=== PATIENT | female | born 1970 | race Caucasian/White ===

== ENCOUNTER 2023-12-01 09:59 | Emergency (ER) | payer OTHER, SELFPAY ==
--- NOTE | ~2023-12-01 | XR_ITS ---
EXAMINATION: XR chest 2V DATE: 12/01/2023 10:45 INDICATION: Shortness of breath TECHNIQUE: PA and lateral views of the chest were obtained. COMPARISON: None FINDINGS: The lungs are clear with no focal airspace opacities, pulmonary edema, pleural effusion or pneumothor ax. The cardiomediastinal silhouette is normal. Cholecystectomy clips in right upper quadrant. Minima l thoracic dextrocurvature with mild spondylosis and mild anterior wedging of a midthoracic vertebral body. IMPRESSION: 1. No acute cardiopulmonary disease. Reviewed, dictated and finalized at location A.
--- NOTE | ~2023-12-01 | XR_ITS ---
EXAMINATION: XR foot LT min 3V DATE: 12/01/2023 10:45 INDICATION: Left foot pain after stepping on a rock TECHNIQUE: Dorsoplantar, oblique and lateral views of the left foot were obtained. COMPARISON: None. FINDINGS: Alignment is normal. No fracture. Mild osteoarthritis at the first metatarsophalangeal and a few tars ometatarsal and interphalangeal joints. Soft tissues are unremarkable. IMPRESSION: 1. 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 No acute osseous abnormality. Reviewed, dictated and finalized at location A. IMPRESSION: 1. 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 No acute oss eous abnormality.
[2023-12-01 10:07] VITALS: RESP 20; O2SAT 100
[2023-12-01 10:08] VITALS: BP 152/110; PULSE 99; RESP 19; TEMP 36.5; O2SAT 97
--- NOTE | 2023-12-01 10:20 | ECG_ITS ---
Test Date: 2023-12-01 10:31:19 Measurements Intervals [place] Rate: 81 P: 28 LA: 150 QRS: 30 QRSD: 88 T: 48 QT: 353 QTc: 411 Interpretive Statements SINUS RHYTHM WITH SINUS ARRHYTHMIA NONSPECIFIC T-WAVE ABNORMALITY ABNORMAL ECG Electronically Signed On 12-02-2023 10:48:12 CDT by Alonso Jeffers M.D.
--- NOTE | 2023-12-01 10:23 | ED.GENADULT ---
HPI - General Adult General Chief complaint: Extremity Injury, Lower Stated complaint: feet issues , new diabetic Time Seen by Provider: 12/01/23 10:11 History of Present Illness HPI narrative: Patient is a 53-year-old female who presents emergency department with chief complaint of peripheral neuropathy patient reports she was recently diagnosed with diabetes and was started on a diabetes medication the patient reports that she is not checking her blood sugars at home reports that she was told by her doctor that she needs to see an eye doctor in needs to see a foot doctor patient states that she is unable to see them until sometime in December and she noticed that her feet were getting tingly and also has had some episodes where she feels short of breath patient denies episodes of chest pain states she is thirsty all the time states she is urinating all the time the patient is unsure what her blood sugars are currently Related Data Allergies Allergy/AdvReac Type Severity Reaction Status Date / Time Sulfa (Sulfonamide Allergy Hives Verified 12/01/23 10:10 Antibiotics) sulfamethoxazole Allergy Hives Verified 12/01/23 10:10 [From Bactrim] trimethoprim [From Bactrim] Allergy Hives Verified 12/01/23 10:10 Review of Systems Review of Systems: A 10 system review of systems was completed on the patient and is negative except for what is stated in the HPI. Nursing and ancillary documentation was reviewed. Exam Narrative: GENERAL: Well-appearing, well-nourished, and in no acute distress. HEAD: Normocephalic, atraumatic. EYES: PERRLA and EOMI. ENT: Nares clear, no rhinorrhea or epistaxis. Mucous membranes moist. NECK: Supple. CHEST: Clear to auscultation. No respiratory distress. HEART: Regular rate and rhythm. No murmur heard. Normal peripheral pulses. ABDOMEN: Soft, nontender, nondistended, normal active bowel sounds. EXTREMITIES: Normal range of motion. No edema. SKIN: Warm, dry, no rash. Pain exam and no wounds present there is tenderness to palpation in the plantar area of the left foot NEURO: No focal deficits. Alert and oriented x3. PSYCH: Normal mood and affect. Course Vital Signs Vital signs: Vital Signs Respiratory Rate 20 12/01/23 10:07 Pulse Oximetry 100 12/01/23 10:07 Temperature 36.5 C 12/01/23 10:08 Pulse Rate 76 12/01/23 11:45 Respiratory Rate 20 12/01/23 11:45 Blood Pressure 144/100 H 12/01/23 11:45 Pulse Oximetry 97 12/01/23 11:45 Oxygen Delivery Room Air 12/01/23 10:08 Medical Decision Making Vital Signs Vital Signs: Vital Signs Respiratory Rate 20 12/01/23 10:07 Pulse Oximetry 100 12/01/23 10:07 Temperature 36.5 C 12/01/23 10:08 Pulse Rate 76 12/01/23 11:45 Respiratory Rate 20 12/01/23 11:45 Blood Pressure 144/100 H 12/01/23 11:45 Pulse Oximetry 97 12/01/23 11:45 Oxygen Delivery Room Air 12/01/23 10:08 Lab Data 12/01/23 10:35 12/01/23 10:35 Labs: Lab Results 12/01/23 12/01/23 Range/Units 10:35 11:46 WBC 8.8 (4.5-10.0) K/mm3 RBC 4.90 (4.2-5.4) M/mm3 Hgb 11.8 L (12.0-15.0) g/dL Hct 37.7 (37.0-47.0) % MCV 76.9 L (80-100) fl MCH 24.1 L (26-34) pg MCHC 31.3 L (32-36) g/dl RDW 16.1 H (11.5-14.5) % Plt Count 385 H (150-375) k/mm3 MPV 9.7 (7.4-10.4) fl Immature Gran % (Auto) 0.3 (0-0.5) % Neut % (Auto) 67.9 (45.5-73.1) % Lymph % (Auto) 20.0 (18.3-44.2) % [place] % (Auto) 6.7 (2.6-8.5) % Eos % (Auto) 4.2 (0-4.4) % Baso % (Auto) 0.9 (0.2-1.2) % Lymph # (Auto) 1.76 (0.9-3.2) K/mm3 [place] # (Auto) 0.6 (0.1-0.6) K/mm3 Eos # (Auto) 0.4 H (0-0.3) K/mm3 Baso # (Auto) 0.1 (0.0-0.1) K/mm3 Abs Immat Gran (auto) 0.03 (0.00-0.031) K/mm3 Absolute Neuts (auto) 6.0 (1.3-6.7) K/mm3 Absolute Nucleated RBC 0.000 (0.0-0.012) K/mm3 Nucleated RBC % 0.0 (0.0-0.2) % Sodium 136 L (137-145) mmol/L
[2023-12-01 10:43] LABS: Basophils Absolute Auto 0.1 K/mm3 (0.0-0.1); Basophils Percent Auto 0.9 % (0.2-1.2); Eosinophils Absolute Auto 0.4 K/mm3 (0-0.3); Eosinophils Percent Auto 4.2 % (0-4.4); Hematocrit 37.7 % (37.0-47.0); Hemoglobin 11.8 g/dL (12.0-15.0); Immature Granulocyte Absolute 0.03 K/mm3 (0.00-0.031); Immature Granulocyte Percent A 0.3 % (0-0.5); Lymphocytes Absolute Auto 1.76 K/mm3 (0.9-3.2); Mean Corpuscular HGB Conc 31.3 g/dl (32-36); Mean Corpuscular Hemoglobin 24.1 pg (26-34); Mean Corpuscular Volume 76.9 fl (80-100); Mean Platelet Volume 9.7 fl (7.4-10.4); Monocytes Absolute Auto 0.6 K/mm3 (0.1-0.6); Monocytes Percent Auto 6.7 % (2.6-8.5); Neutrophils Percent Auto 67.9 % (45.5-73.1); Platelet Count Result 385 k/mm3 (150-375); Red Cell Distribution Width 16.1 % (11.5-14.5); White Blood Count 8.8 K/mm3 (4.5-10.0)
[2023-12-01 10:53] LABS: Alanine Aminotransferase 35 U/L (6-35); Alkaline Phosphatase 116 U/L (38-126); Anion Gap 9 mmol/L (4-12); Aspartate Amino Transferase 34 U/L (14-36); Bilirubin,Total 0.4 mg/dL (0.2-1.3); Blood Urea Nitrogen 16 mg/dL (7-17); Calcium 9.1 mg/dL (8.4-10.2); Carbon Dioxide 26 mmol/L (22-30); Chloride 101 mmol/L (98-107); Estimated Glomerular Filt Rate 58; Glucose 112 mg/dL (65-110); Magnesium 2.2 mg/dL (1.6-2.3); Sodium 136 mmol/L (137-145)
[2023-12-01 11:05] LABS: NT Pro B Type Natriuretic Pept 48 pg/mL (19.9-100); Troponin I < 0.012 ng/mL (0.000-0.034)
[2023-12-01 11:45] VITALS: BP 144/100; PULSE 76; RESP 20; O2SAT 97
[2023-12-01 11:53] LABS: Add Urine Microscopic? NO; Appearance Urine Clear (Clear); Bilirubin Urine Negative (Negative); Blood Urine Negative (Negative); Color Urine Yellow (Yellow); Glucose Urine UA 3+ mg/dL (Negative); Ketones Urine Trace mg/dL (Negative); Leukocyte Esterase Ur Negative LEU/UL (Negative); Nitrate Urine Negative (Negative); Protein Urine Negative (Negative); Specific Grav Ur 1.028 (1.001-1.035); pH Urine 5.5 (5.0-9.0)
== END 2023-12-01 12:53 | disposition home or self-care (01) ==
PROVIDERS: Emergency Provider Emergency Medicine
DX: E11.42 Type 2 diabetes mellitus with diabetic polyneuropathy (principal); M79.672 Pain in left foot; M19.072 Primary osteoarthritis, left ankle and foot
CPT/HCPCS: 36415; 71046; 73630; 80053; 81003; 83735; 83880; 84484; 85025; 93005; 99284

== ENCOUNTER 2024-10-14 12:27 | Emergency (ER) | payer OTHER, SELFPAY ==
[2024-10-14] VITALS (9 sets, daily range): BP systolic 150–174; BP diastolic 97–126; PULSE 92–123; RESP 10–24; TEMP 37; O2SAT 96–98
--- OUTSIDE RECORDS SUMMARY | 2024-10-14 12:29 | XMS_ITS | Patient Health Record ---
Author Organization [facility] Address [address] [place] [address] Care Team Providers Care Lockstitch Waistband Setter Name Role Phone James Quan Primary Care Provider Marjan Zabala Unavailable [phone] Yumiko Coffman Unavailable [phone] Alex Granda Unavailable Allergies Allergen (clinical drug ingredient) Drug/Non Drug Allergy documented on EMR Reaction Allergy Type Onset Date Status sulfamethoxazole / trimethoprim Bactrim Unknown Drug Allergy Active Results Component Value Reference Range Notes Vitamin B12 and Folate Reviewed date:06/17/2024 03:51:14 PM Interpretation: Performing Lab:[facility], [address] [facility], Phone - [phone], Director - PhDKandice Notes/Report: Vitamin B12 604 277-1088 pg/mL Folate (Folic Acid), Serum 11.2 >3.0 ng/mL A serum folate concentration of less than 3.1 ng/mL is considered to represent clinical deficiency. Hemoglobin A1c* Reviewed date:06/17/2024 03:51:14 PM Interpretation: Performing Lab:[facility], [address] [facility] [facility], [place], Phone - [phone], Director - PhDKandice Notes/Report: Hemoglobin A1c 6.4 4.8-5.6 % . Prediabetes: 5.7 - 6.4 Diabetes: >6.4 Glycemic control for adults with diabetes: <7.0 CBC With Differential/Platel et* Reviewed date:06/17/2024 03:51:14 PM Interpretation: Performing Lab:[facility] [place], [address] [facility], Phone - [phone], Director - [facility] Notes/Report: WBC 12.5 3.4-10.8 x10E3/uL RBC 5.59 3.77-5.28 x10E6/uL Hemoglobin 12.5 11.1-15.9 g/dL Hematocrit 41.5 34.0-46.6 % MCV 74 79-97 fL MCH 22.4 26.6-33.0 pg MCHC 30.1 31.5-35.7 g/dL RDW 16.6 11.7-15.4 % Platelets 473 150-450 x10E3/uL Neutrophils 60 Not Estab. % Lymphs 27 Not Estab. % Monocytes 6 Not Estab. % Eos 6 Not Estab. % Basos 1 Not Estab. % Neutrophils (Absolute) 7.5 1.4-7.0 x10E3/uL Lymphs (Absolute) 3.4 0.7-3.1 x10E3/uL Monocytes(Absolute) 0.7 0.1-0.9 x10E3/uL Eos (Absolute) 0.8 0.0-0.4 x10E3/uL Baso (Absolute) 0.1 0.0-0.2 x10E3/uL Immature Granulocytes 0 Not Estab. % Immature Grans (Abs) 0.0 0.0-0.1 x10E3/uL Vitamin D, 25-Hydroxy* Reviewed date:06/17/2024 03:51:14 PM Interpretation: Performing Lab:[facility] [place], [address] [facility], Phone - [phone], Director - [facility] Notes/Report: Vitamin D, 25-Hydroxy 19.5 30.0-100.0 ng/mL Vitamin D deficiency has been defined by the [place] of Medicine and an Endocrine Society practice guideline as a level of serum 25-OH vitamin D less than 20 ng/mL (1,2). The Endocrine Society went on to further define vitamin D insufficiency as a level between 21 and 29 ng/mL (2). 1. IOM ([place] of Medicine). 2010. Dietary reference intakes for calcium and D. [place]: The National Academies Press. 2. Joshua STOUT, Cr DICKENS, Surinder-Tyrel CRAWFORD, et al. Evaluation, treatment, and prevention of vitamin D deficiency: an Endocrine Society clinical practice guideline. JCEM. 2010; 967):1911-30. Lipid Panel* Reviewed date:06/17/2024 03:51:14 PM Interpretation: Performing [facility] [address] [place] [address], Phone - [phone], Director - Casi Notes/Report: Cholesterol, Total 209 100-199 mg/dL Triglycerides 266 0-149 mg/dL HDL Cholesterol 46 >39 mg/dL VLDL Cholesterol Yahir 46 5-40 mg/dL LDL Chol Calc (NIH) 117 0-99 mg/dL CMP 14 Comprehensive Metabol ic Panel* Reviewed date:06/17/2024 03:51:14 PM Interpretation: Performing Lab:[facility], [address] [place] [address], Phone - [phone], Director - [facility] Notes/Report: Glucose 79 70-99 mg/dL BUN 13 6-24 mg/dL Creatinine 0.84 0.57-1.00 mg/dL eGFR 83 >59 mL/min/1.73 BUN/Creatinine Ratio 15 9-23 Sodium 138 134-144 mmol/L Potassium 4.7 3.5-5.2 mmol/L Chloride 97 96-106 mmol/L Carbon Dioxide, Total 23 20-29 mmol/L Calcium 9.6 8.7-10.2 mg/dL Protein, Total 7.4 6.0-8.5 g/dL Albumin 4.4 3.8-4.9 g/dL Globulin, Total 3.0 1.5-4.5 g/dL Bilirubin, Total 0.3 0.0-1.2 mg/dL Alkaline Phosphatase 181 44-121 IU/L AST (SGOT) 26 0-40 IU/L ALT (SGPT) 31 0-32 IU/L TSH Rfx on Abnormal to Free T4 Reviewed date:06/17/2024 03:51:14 PM Interpretation: Performing Lab:[facility], [facility] [facility], Phone - [phone], Director - Casi Notes/Report: TSH 4.960 0.450-4.500 uIU/mL T4,Free (Direct) 1.52 0.82-1.77 ng/dL Hepatitis C Virus Antibody w /Rflx to Quantitative Real-time PCR ([id number]) Reviewed date:07/14/2024 02:49:33 PM Interpretation: Performing Lab:[address], Phone - [phone], Director - [facility] Notes/Report: HCV Ab Non Reactive Non Reactive Interpretation: Not infected with HCV unless early or acute infection is suspected (which may be delayed in an immunocompromised individual), or other evidence exists to indicate HCV infection. Hepatitis B Surface Antigen (HBsAg Screen) Reviewed date:07/14/2024 02:49:33 PM Interpretation: Performing Lab:[address], Phone - [phone], Director - [facility] Notes/Report: HBsAg Screen Negative Negative CBC With Differential/Platel et* Reviewed date:07/14/2024 02:49:33 PM Interpretation: Performing Lab:[address], Phone - [phone], Director - [facility] Notes/Report: WBC 11.6 3.4-10.8 x10E3/uL RBC 5.19 3.77-5.28 x10E6/uL Hemoglobin 11.6 11.1-15.9 g/dL Hematocrit 37.7 34.0-46.6 % MCV 73 79-97 fL MCH 22.4 26.6-33.0 pg MCHC 30.8 31.5-35.7 g/dL RDW 16.1 11.7-15.4 % Platelets 429 150-450 x10E3/uL Neutrophils 58 Not Estab. % Lymphs 28 Not Estab. % Monocytes 7 Not Estab. % Eos 6 Not Estab. % Basos 1 Not Estab. % Neutrophils (Absolute) 6.6 1.4-7.0 x10E3/uL Lymphs (Absolute) 3.3 0.7-3.1 x10E3/uL Monocytes(Absolute) 0.8 0.1-0.9 x10E3/uL Eos (Absolute) 0.7 0.0-0.4 x10E3/uL Baso (Absolute) 0.1 0.0-0.2 x10E3/uL Immature Granulocytes 0 Not Estab. % Immature Grans (Abs) 0.0 0.0-0.1 x10E3/uL Hemoglobin A1c CLIA Waived Reviewed date:08/11/2024 10:55:30 AM Interpretation: Performing Lab: Notes/Report: Hemoglobin A1c 6.3 4.0 - 6.4 % Alpha-Fetoprotein (AFP), Dane or Marker Reviewed date:07/14/2024 02:49:33 PM Interpretation: Performing Lab:[address], Phone - [phone], [facility] Notes/Report: AFP, Serum, Tumor Marker <1.8 0.0-9.2 ng/mL [employer] Electrochemiluminescence Immunoassay (ECLIA) . Values obtained with different assay methods or kits cannot be used interchangeably. Results cannot be interpreted as absolute evidence of the presence or absence of malignant disease. . This test is not interpretable in females. Ferritin, Serum* Reviewed date:07/01/2024 05:01:40 PM Interpretation: Performing Lab:[address], Phone - [phone], [facility] Notes/Report: Ferritin 8 15-150 ng/mL Iron and TIBC* Reviewed date:07/01/2024 05:01:40 PM Interpretation: Performing Lab:[address], Phone - [phone], [facility] Notes/Report: Iron Bind.Cap.(TIBC) 426 250-450 ug/dL UIBC 404 131-425 ug/dL Iron 22 27-159 ug/dL Iron Saturation 5 15-55 % C-Reactive Protein, Quant Reviewed date:07/01/2024 05:01:40 PM Interpretation: Performing Lab:[address], Phone - [phone], Director - [facility] Notes/Report: C-Reactive Protein, Quant 7 0-10 mg/L CMP 14 Comprehensive Metabol ic Panel* Reviewed date:07/01/2024 05:01:40 PM Interpretation: Performing Lab:[address], Phone - [phone], [facility] Notes/Report: Glucose 92 70-99 mg/dL BUN 11 6-24 mg/dL Creatinine 0.69 0.57-1.00 mg/dL eGFR 104 >59 mL/min/1.73 BUN/Creatinine Ratio 16 9-23 Sodium 140 134-144 mmol/L Potassium 4.4 3.5-5.2 mmol/L Chloride 102 96-106 mmol/L Carbon Dioxide, Total 24 20-29 mmol/L Calcium 9.2 8.7-10.2 mg/dL Protein, Total 7.2 6.0-8.5 g/dL Albumin 4.3 3.8-4.9 g/dL Globulin, Total 2.9 1.5-4.5 g/dL Bilirubin, Total <0.2 0.0-1.2 mg/dL Alkaline Phosphatase 171 44-121 IU/L AST (SGOT) 22 0-40 IU/L ALT (SGPT) 31 0-32 IU/L Alk Phos Isoenzyme Reviewed date:07/14/2024 02:49:33 PM Interpretation: Performing Lab:[facility] [place], [address] [facility], [place], Phone - [phone], Director - Casi Notes/Report: Alkaline Phosphatase 169 44-121 IU/L Liver Fraction: 71 18-85 % Bone Fraction: 27 14-68 % Intestinal Frac.: 2 0-18 % Reason For Referral Reason right knee and left hip pain Diagnosis 1 Left hip pain (M25.5 52) Diagnosis 2 Right knee pain (M25 .561) Referral Organization [facility] Referring Provider First Name Yumiko Referring Provider Last Name [place] [facility]erred Provider Specialty Physical The rapist General Notes Aziaz Larkin 03:01:18 PM >Client prefers [facility], Aziza Larkin 07/01/2024 03:04:21 PM >Referral faxed to [facility]., Aziza Larkin 07/02/2024 09:40:56 AM >Left a message for client that PT referral has been faxed to [facility]. Clinical Notes [facility]ter, [address] [place] [address], , Referral Priority Routine Reason NEEDS NEW HEARING AI DS Diagnosis 1 Hearing aid worn (Z9 7.4) Referral Organization [facility] Referring Provider First Name Quan Referring Provider Last Name Ramirez Referring Provider Speciality Internal M edicine Referred Provider Specialty Audiologists Referral Priority Routine Reason OFFICE APPT, NEEDS N EW EQUIPMENT Diagnosis 1 Sleep apnea in adult (G47.33) Referral Organization [facility] Referring Provider First Name Quan Referring Provider Last Name Ramirez Referring Provider Speciality Internal M edicine Referred Provider Specialty Sleep Medici ne General Notes Dragan KRAFT, Tracy Nolen 12/2024 02:58:43 PM > Referral and letter sent Clinical Notes Dr Gelacio Zamudio, [address] [facility] [address], [facility] [address], phone [phone], fax [phone] Referral Priority Routine Medications Medication SIG (Take, Route, Frequency, Duration) Notes Start Date End Date Status Levothyroxine Sodium 100 MCG 1 tablet in the morning on an empty stomach Orally Once a day; Duration: 30 days Active Famotidine 40 MG 1 tablet at bedtime Orally Once a day; Duration: 30 days Active Dulaglutide 0.75 MG/0.5ML 0.5 mL Subcuta neous weekly; Duration: 28 days 09/10/2024 Active Atorvastatin Calcium 40 MG 1 tablet Oral ly Once a day; Duration: 30 days Active Diclofenac Sodium 75 MG Oral; Duration: 30 Days Active Gabapentin 100 MG TAKE 1 CAPSULE BY [facility] THREE TIMES DAILY DIRECTED FOR NERVE PAIN Oral; Duration: 30 Days Active Farxiga 10 MG 1 tablet Orally Once a day; Duration: 30 days Active Lisinopril 10 MG 1 tablet Orally Once a day; Duration: 30 days 06/29/2024 Active buPROPion HCl ER (SR) 150 MG 1 tablet in the morning Orally Once a day; Duration: 90 days Active Citalopram Hydrobromide 10 MG 1 tablet Orally Once a day; Duration: 90 days Active traZODone HCl 50 MG 1 tablet at bedtime as needed Orally Once a day; Duration: 90 days Active Social History Tobacco Use: Social History Observation Description Date Details (start date - stop date) Never Smoker NA - NA Sex Assigned At : Social History Observation Description Sex Assigned At Female Tobacco Control (Standard) Question Answer Notes Tobacco use: Nonsmoker Problems Problem Type SNOMED Code ICD Code Onset Dates Problem Status W/U Status Risk Notes Problem Essential hypertension (02838160) Essential (primary) hypertension (I10) 06/30/19 25 Active confirmed Med Problem Hypertension (68602189) Hypertension (I10) Active confirmed Problem Hyperlipidemia (85130096) Hyperlipidemia (E78.5) Active confirmed Problem Gastroesophageal reflux disease (397571359) GERD (gastroesophageal reflux disease) (K21.9) Active confirmed Problem Depression (928442750) Depression (F32.9) Active confirmed Problem Anxiety (10404926) Anxiety (F41.9) Active confi rmed Problem Type II diabetes mellitus without complication (643231008) Diabetes (E11.9) Active confirmed Problem Hypothyroidism (57547001) Hypothyroidism (E03.9) Active confirmed Problem Elevated blood pressure (66278779) Elevated blood pressure (I10) Active confirmed Problem Iron deficiency anemia (70365337) Iron deficiency anemia (D50.9) Active confirmed Problem Overweight (195674805) Over weight (E66.3) Active confirmed Problem Obstructive sleep apnea syndrome (75425642) Sleep apnea in adult (G47.33) Active confirmed Problem Laboratory test result abnormal (306989915) Abnormal laboratory test result (R89.9) Active confirmed Problem Acid reflux (140506057) Acid reflux (K21.9) Active confirmed Problem Obesity (424477564) Obesity, unspecified classification, unspecified obesity type, unspecified whether serious comorbidity present (E66.9) Active confirmed Vital Signs Heart Rate 106 /min 09/10/2024 Temperature 98.5 degrees Fahrenheit 09/10/2024 Respiratory Rate 16 /min 09/10/2024 Blood pressure diastolic 68 mm Hg 09/10/2024 Oximetry 93 % 09/10/2024 Height 60 in 09/10/2024 Blood pressure systolic 122 mm Hg 09/10/2024 Weight 220.6 lbs 09/10/2024 BMI 43.08 kg/m2 09/10/2024 Encounters Encounter Location Date Provider Diagnosis [facility] [address] [place] [address] 06/16/2024 Yumiko Coffman Screening for deficiency anemia Z13.0 ; Diabetes E11.9 ; Screening for hyperlipidemia Z13.220 ; Screening for metabolic disorder Z13.228 and Screening for thyroid disorder Z13.29 [facility] [address] [place] [address] 07/13/2024 Yumiko Coffman Elevated alkaline phosphatase level R74.8 and Abnormal laboratory test result R89.9 [facility] [address] [place] [address] 06/15/2024 Yumiko Coffman Screening for deficiency anemia Z13.0 ; Follow-up exam Z09 ; Screening for metabolic disorder Z13.228 ; Screening for hyperlipidemia Z13.220 ; Screening for thyroid disorder Z13.29 ; Diabetes E11.9 ; Nutritional counseling Z71.3 and Elevated blood pressure I10 [facility] [address] [place] [address] 06/29/2024 Yumiko Coffman Abnormal laboratory test result R89.9 ; Essential (primary) hypertension I10 ; Depression F32.9 ; Right knee pain M25.561 ; Left hip pain M25.552 ; Diabetes E11.9 ; Acid reflux K21.9 and Nutritional counseling Z71.3 [facility] [place] [address] 06/29/2024 Alex Granda Depression F32.[address] [place] [address] 07/22/2024 Marjan Zabala Depression F32.9 ; Anxiety F41.9 and Over weight E66.[address] [place] [address] 08/11/2024 Quan Ramirez Diabetes E11.9 ; Hypothyroidism E03.9 ; Hyperlipidemia E78.5 ; Hypertension I10 and Over weight E66.[address] [place] [address] 09/10/2024 Quan Ramirez Over weight E66.3 ; Diabetes E11.9 ; Hearing aid worn Z97.4 and Sleep apnea in adult G47.[address] [place] [address] 10/14/2024 Quan Ramirez [address] [place] [address] 06/17/2024 Yumiko Coffman Abnormal laboratory test result R89.9 and Hyperlipidemia E78.5 [facility] [address] [place] [address] 07/01/2024 Yumiko Coffman [address] [place] [address] 07/01/2024 Yumiko Coffman Elevated alkaline phosphatase level R74.8 [facility] [address] [address] 07/06/2024 Yumiko Coffman [facility] [address] [place] [address] 07/13/2024 Yumiko Coffman [address] [place] [address] 07/14/2024 Yumiko Coffman Iron deficiency anemia D50.[address] [place] [address] 07/20/2024 Yumiko Coffman [address] [place] [address] 07/22/2024 Marjan Zabala [facility] [address] [place] [address] 08/06/2024 Yumiko Coffman Essential (primary) hypertension I10 [address] [place] [address] 08/13/2024 Quan Ramirez [facility] [address] [facility] [address] 10/05/2024 Quan Ramirez Hyperlipidemia E78.5 Assessments Encounter Date Diagnosis (ICD Code) Assessment Notes Treatment Notes Treatment Clinical Notes Section Notes 06/29/2024 Essential (primary) hypertension (ICD-10 - I10) 06/29/2024 Abnormal laboratory test result (ICD-10 - R89.9) 07/01/2024 Elevated alkaline phosphatase level (ICD-10 - R74.8) 07/13/2024 Elevated alkaline phosphatase level (ICD-10 - R74.8) 09/10/2024 Diabetes (ICD-10 - E11.9) 09/10/2024 Over weight (ICD-10 - E66.3) 10/05/2024 Hyperlipidemia (ICD-10 - E78.5) 08/11/2024 Diabetes (ICD-10 - E11.9) DISCUSSED AND SENT WEB MD INFO ON BODY WEIGHT EXERCISES AND THE MEDITERRANEAN DIET. 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 07/22/2024 Anxiety (ICD-10 - F41.9) Reports hx of ADD/ADHD-in attentive type; possible PTSD Client also reports possible addictive behavior to video games and her phone - continue therapy. 06/15/2024 Screening for metabolic disorder (ICD-10 - Z13.228) 08/11/2024 Hyperlipidemia (ICD-10 - E78.5) 06/16/2024 Diabetes (ICD-10 - E11.9) 06/17/2024 Hyperlipidemia (ICD-10 - E78.5) 09/10/2024 Hearing aid worn (ICD-10 - Z97.4) 07/13/2024 Abnormal laboratory test result (ICD-10 - R89.9) 06/29/2024 Depression (ICD-10 - F32.9) 06/29/2024 Right knee pain (ICD-10 - M25.561) 08/11/2024 Hypertension (ICD-10 - I10) 09/10/2024 Sleep apnea in adult (ICD-10 - G47.33) 06/16/2024 Screening for hyperlipidemia (ICD-10 - Z13.220) 06/15/2024 Screening for hyperlipidemia (ICD-10 - Z13.220) 07/22/2024 Over weight (ICD-10 - E66.3) Encouraged healthy diet and exercise Reports hx of ADD/ADHD-in attentive type; possible PTSD Client also reports possible addictive behavior to video games and her phone - continue therapy. 06/15/2024 Screening for thyroid disorder (ICD-10 - Z13.29) 06/16/2024 Screening for metabolic disorder (ICD-10 - Z13.228) 08/11/2024 Over weight (ICD-10 - E66.3) 06/29/2024 Left hip pain (ICD-10 - M25.552) 06/29/2024 Diabetes (ICD-10 - E11.9) 06/16/2024 Screening for thyroid disorder (ICD-10 - Z13.29) 06/15/2024 Diabetes (ICD-10 - E11.9) 06/15/2024 Nutritional counseling (ICD-10 - Z71.3) 06/29/2024 Acid reflux (ICD-10 - K21.9) 06/15/2024 Elevated blood pressure (ICD-10 - I10) Pt. agreeable to returning in 2 weeks for a BP check 06/29/2024 Nutritional counseling (ICD-10 - Z71.3) 06/15/2024 Other Patient may self-administer their own medications or may self-administer their own oral medications per [place] Protocol. 06/29/2024 Other Patient may self-administer their own medications or may self-administer their own oral medications per [place] Protocol. 07/22/2024 Other [place] agreement to continue current regimen. Continue therapy. Reasons, potential benefits, potential risks, interactions and side effects of all medications were discussed. The Patient/Guardian asked appropriate questions, appeared to understand the answers, and decided to accept the treatment and continue being followed. Alternatives and expected course without treatment were reviewed. The Patient/Guardian is aware of the need to contact the office or return for an earlier appointment if any problems or concerns arise. May also contact the 24-hour crisis hotline (R), refer to the closest emergency room or call 911 if new symptoms arise of existing symptoms worsen. The Patient/Guardian is aware that this would apply to symptoms like: suicidal ideation, homicidal ideation, high risk behaviors, manic symptoms, psychotic symptoms, physical symptoms, or any other symptoms that may be dangerous to self or others. Greater than 50% of time spent on coordination and counseling where psychopharmacology as well as psychotherapeutic interventions were discussed along with review of treatments in the past. Education provided concerning need for adequate hydration. Patient/Guardian verbalized understanding of education, treatment plan and follow up. This session was completed telephonically with client/parental/guar ignacia consent: Unable to determine movement status, assess appearance, affect, AIMS, or vital signs. 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 Plan Of Treatment No Information Insurance Providers Payer Name Payer Address Payer Phone Subscriber Number Group Number Insured Name Patient Relationship to Insured Coverage Start Date Coverage End Date [facility] Attn Claims Department [address] [address] [id number] Kaylynn Krause Self - patient is the insured 4 [employer] Attn Claims Department [address] [address] [id number] Kaylynn Krause Self - patient is the insured 5 [employer] Attn Claims Department [address] [address] [id number] Kaylynn Krause Self - patient is the insured 4 Medical (General) History Medical History History ICD Code Pre-Diabetes Thyroid anxiety Depression Hyperlipidemia E78.5 Depression F32.9 Anxiety F41.9 GERD (gastroesophageal reflux disease) K 21.9 Surgical History Surgery Date(Month/Year) D & C Tonsillectomy Gallbladder Hospitalization History Reason Date(Month/Year) In [place](for Mental Health)
[2024-10-14 13:07] LABS: Hematocrit 42.0 % (37.0-47.0); Hemoglobin 12.6 g/dL (12.0-15.0); Immature Granulocyte Percent A 0.3 % (0-0.5); Lymphocytes Absolute Auto 2.98 K/mm3 (0.9-3.2); Mean Corpuscular HGB Conc 30.0 g/dl (32-36); Mean Corpuscular Hemoglobin 23.6 pg (26-34); Mean Corpuscular Volume 78.7 fl (80-100); Nucleated Red Blood Cells Absolute Auto 0.000 K/mm3 (0.0-0.012); Nucleated Red Blood Cells Perc 0.0 % (0.0-0.2); Platelet Count Result 358 k/mm3 (150-375); Red Blood Count 5.34 M/mm3 (4.2-5.4); White Blood Count 9.2 K/mm3 (4.5-10.0)
[2024-10-14 13:18] LABS: Alanine Aminotransferase 36 U/L (6-35); Albumin Level 4.4 g/dL (3.5-5.1); Alkaline Phosphatase 114 U/L (38-126); Anion Gap 14 mmol/L (4-12); Aspartate Amino Transferase 34 U/L (14-36); Bilirubin,Total 0.4 mg/dL (0.2-1.3); Blood Urea Nitrogen 10 mg/dL (7-17); Calcium 9.6 mg/dL (8.4-10.2); Carbon Dioxide 24 mmol/L (22-30); Chloride 102 mmol/L (98-107); Estimated CRCL calculation 56 ml/min; Estimated Glomerular Filt Rate 54; Glucose 106 mg/dL (65-110); Magnesium 2.3 mg/dL (1.6-2.3); Potassium 3.6 mmol/L (3.4-5.0); Sodium 140 mmol/L (137-145); Total Protein 8.2 g/dL (6.3-8.2)
[2024-10-14] MEDS: LACTATED RINGERS 1,000 ML 999 ML IV CONT ×2 (13:18)
[2024-10-14] MEDS: LACTATED RINGERS 900 ML 999 ML IV CONT (13:19)
[2024-10-14 13:21] LABS: INR 1.0; Prothrombin Time 13.5 Seconds (11.1-14.7)
[2024-10-14 13:22] LABS: Partial Thromboplastin Time 26.7 Seconds (22.3-36.8)
--- OUTSIDE RECORDS SUMMARY | 2024-10-14 13:24 | XMS_ITS | Data Portability ---
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 returned to [facility] from [place] and is in need of referrals. She denies any illness or injuries. She states that she is hard of hearing and wears bilateral hearing aids. She states that she will need to have them professionally cleaned prior to starting her job with the [employer]. Cristina HowieTELMA [address], [place], [address], [place] 11/16/2023 11:59:26 12/05/2023 text/html The patient is a 53-year-old female who presents with bilateral hand numbness and tingling. This has been ongoing for at least a month states it has been persistent in nature. She describes decreased sensation and tingling in the median nerve distributions both hands left worse than right. Denies any specific trauma or injury no repetitive overuse type injury is not sure why she is having issues. She did state that she was recently diagnosed with type 2 diabetes is also having some tingling in both feet. She has been placed on metformin also has history of hypothyroidism and was given some oral anti-inflammatory medication she was taking diclofenac 50 mg t.i.d. and also ibuprofen 200 mg 3 tablets 3 times a day I have advised her she should only take 1 of the other she states she is almost out of the diclofenac. She does have night splints that she wears she actually wears the cock-up wrist braces during the day as well. The problem does not keep her awake at night but occasionally she will have to shake her hands and work them around to try to get the normal sensation back. She has some problems with aching pain as well in the thumbs emanating from the carpal tunnel region. She states that pain is about a 5 on a scale of 1-10 denies any weakness no loss of motion no effusion or swelling she comes in today for initial evaluation treatment. New past medical history sheet was reviewed and signed on the intake sheet of today's date drug allergies current medications family social history previous surgical history 10 point review of systems was reviewed and discussed in detail today with the patient. SUDEEP Topete [address], [place], [address], [place] 12/05/2023 16:16:57 12/30/2023 text/html . Patient is a 53-year-old female morbidly obese diabetic who states that she has numbness tingling of the feet. Patient states that she has recently been diagnosed for diabetes. Patient states she has difficulty walking she states that she can only walk about 20 minutes and has stopped she states she can comfortably walk 0-2 blocks. Patient states the pain is intermittent in nature she states that resting, anti-inflammatories, and ice has helped. Patient also has carpal tunnel bilaterally of her risks. Patient denies any recent injury of her feet. Bradley Vasquez DPM [address] [facility], [place], [address], [place] 12/31/2023 08:59:26 03/03/2024 text/html Kaylynn presents to day for 4 month follow up. Patient states that she seen Dr. Vasquez with podiatry and he tested her for neuropathy. Upon entering the room, pt was found to have no shoes on, stating that she does not like shoes anymore because they cause pain to her feet. She also has wrist braces on both wrist due to carpal tunnel. 11/12/2023Kaylynn presents today for 3 month follow up. Labs discussed with patient. She verbalized understanding. She states that she has been having bilateral hand pain and tingling. 07/08/2023Kaylynn presents today to establish care as a new patient. She recently returned to [facility] from [place] and is in need of referrals. She denies any illness or injuries. She states that she is hard of hearing and wears bilateral hearing aids. 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 Cristina Ferrell APRN [address] [facility] [address], [place], [address], [place] 03/03/2024 14:39:39 OBGyn Episode No OBEpisode recorded.
--- NOTE | 2024-10-14 13:50 | ED.GENADULT ---
HPI - General Adult General Chief complaint: Unspecified Stated complaint: I'm dehydrated to start with Time Seen by Provider: 10/14/24 12:53 History of Present Illness HPI narrative: 54-year-old female with no pertinent past medical history presenting to the emergency department with diarrhea for several days and dehydration. She states she has been having diarrhea with loose watery stools that appeared dark in color. She states she has a history of iron deficiency anemia in the past. No history of GI bleeding and does not take any iron supplements at this time. She feels dehydrated states that she has gone to the bathroom with diarrhea up to 2 times a day for last 2 days. Denies any abdominal pain or cramping. No nausea, vomiting, fever, chills. She has a secondary complaint of potential allergen exposures in the household and thinks she needs to see an director occupational. Was otherwise in her normal state of health, no new medications or diet changes and she has not tried anything for symptom control at home. No previous colonoscopies. Related Data Allergies Allergy/AdvReac Type Severity Reaction Status Date / Time Sulfa (Sulfonamide Allergy Hives Verified 12/01/23 10:10 Antibiotics) sulfamethoxazole (From Allergy Hives Verified 12/01/23 10:10 Bactrim) trimethoprim (From Bactrim) Allergy Hives Verified 12/01/23 10:10 Review of Systems Review of Systems: As reviewed above in HPI Exam Narrative: GENERAL: [Well-appearing, well-nourished, and in no acute distress.] HEAD: [Normocephalic, atraumatic.] EYES: [PERRLA and EOMI.] ENT: Nares clear, no rhinorrhea or epistaxis. Mucous membranes dry. NECK: Supple. CHEST: [Clear to auscultation. No respiratory distress.] HEART: [Regular rate and rhythm]. No murmur heard. [Normal peripheral pulses.] ABDOMEN: [Soft, nondistended], nontender to palpation to light or deep palpation, [No rigidity or guarding] EXTREMITIES: Normal range of motion. [No edema.] SKIN: Warm, dry, no rash. NEURO: [No focal deficits]. Alert and oriented [x3.] PSYCH: [Normal mood and affect.] Course Vital Signs Vital signs: Vital Signs Temperature 37.0 C 10/14/24 12:28 Pulse Rate 123 H 10/14/24 12:28 Respiratory Rate 18 10/14/24 12:28 Blood Pressure 174/126 H 10/14/24 12:28 Pulse Oximetry 97 10/14/24 12:28 Temperature 37.0 C 10/14/24 12:28 Pulse Rate 92 10/14/24 14:32 Respiratory Rate 11 L 10/14/24 14:32 Blood Pressure 163/97 H 10/14/24 14:32 Pulse Oximetry 98 10/14/24 14:32 Medical Decision Making MDM Narrative Medical decision making narrative: 54-year-old female with no pertinent past medical history presenting to the emergency department with diarrhea for several days and dehydration. She states she has been having diarrhea with loose watery stools that appeared dark in color. She states she has a history of iron deficiency anemia in the past. No history of GI bleeding and does not take any iron supplements at this time. She feels dehydrated states that she has gone to the bathroom with diarrhea up to 2 times a day for last 2 days. Denies any abdominal pain or cramping. No nausea, vomiting, fever, chills. She has a secondary complaint of potential allergen exposures in the household and thinks she needs to see an director occupational. Was otherwise in her normal state of health, no new medications or diet changes and she has not tried anything for symptom control at home. No previous colonoscopies. No recent antibiotic use of any kind. Patient is otherwise well-appearing not any acute distress, slightly tachycardic in triage but afebrile. Hypertensive but not causing any symptoms at this time. Some dry mucous membranes consistent with dehydration and likely source being GI. Her diarrhea seems not too bothersome as she has only states she has gone to the bathroom twice every day for last 2 days. Not any acute distress at this time has a soft nontender nondistended abdomen. Suspicion for potential gastroenteritis is higher suspect viral versus less likely bacterial or toxin based. No history of diverticulosis and no abdominal pain or fever suspecting diverticulitis at this time. She is tolerating oral intake without difficulty. She was given fluid rehydration here with several L of fluid and laboratory studies including CBC, CMP, lactic acid and magnesium ordered. Laboratory studies showed no leukocytosis or anemia. She does have some low MCV which is probably chronic iron deficiency S her previous labs are very similar. Normal platelet count. Coagulation panel is normal. Electrolytes are unremarkable. Creatinine around her baseline. Normal glucose. Normal LFTs. Negative lactic acid. Normal albumin. Patient received fluid hydration and her vital signs have all normalized without any tachycardia. She was observed for several hours without any worsening symptoms or any episodes of diarrhea. She remains afebrile and stable for discharge home at this time given unremarkable workup. She will have to follow up with regular doctor about her iron deficiency and given her age past 51 she would need a colonoscopy. Will refer her to GI doctor outpatient. Patient prescribed loperamide for diarrhea control and discharged home with return precautions. Medical Records Medical records reviewed: Yes I reviewed the external patient's medical records. Vital Signs Vital Signs: Vital Signs Temperature 37.0 C 10/14/24 12:28 Pulse Rate 123 H 10/14/24 12:28 Respiratory Rate 18 10/14/24 12:28 Blood Pressure 174/126 H 10/14/24 12:28 Pulse Oximetry 97 10/14/24 12:28 Temperature 37.0 C 10/14/24 12:28 Pulse Rate 92 10/14/24 14:32 Respiratory Rate 11 L 10/14/24 14:32 Blood Pressure 163/97 H 10/14/24 14:32 Pulse Oximetry 98 10/14/24 14:32 Lab Data Lab results reviewed: Yes I reviewed the patient's lab results. 10/14/24 13:03 10/14/24 13:03 Labs: Lab Results 10/14/24 Range/Units 13:03 WBC 9.2 (4.5-10.0) K/mm3 RBC 5.34 (4.2-5.4) M/mm3 Hgb 12.6 (12.0-15.0) g/dL Hct 42.0 (37.0-47.0) % MCV 78.7 L (80-100) fl MCH 23.6 L (26-34) pg MCHC 30.0 L (32-36) g/dl RDW 18.8 H (11.5-14.5) % Plt Count 358 (150-375) k/mm3 MPV 9.0 (7.4-10.4) fl Immature Gran % (Auto) 0.3 (0-0.5) % Neut % (Auto) 51.9 (45.5-73.1) % Lymph % (Auto) 32.3 (18.3-44.2) % Osborne % (Auto) 9.2 H (2.6-8.5) % Eos % (Auto) 5.5 H (0-4.4) % Baso % (Auto) 0.8 (0.2-1.2) % Lymph # (Auto) 2.98 (0.9-3.2) K/mm3 Osborne # (Auto) 0.9 H (0.1-0.6) K/mm3 Eos # (Auto) 0.5 H (0-0.3) K/mm3 Baso # (Auto) 0.1 (0.0-0.1) K/mm3 Abs Immat Gran (auto) 0.03 (0.00-0.031) K/mm3 Absolute Neuts (auto) 4.8 (1.3-6.7) K/mm3 Absolute Nucleated RBC 0.000 (0.0-0.012) K/mm3 Nucleated RBC % 0.0 (0.0-0.2) % PT 13.5 (11.1-14.7) Seconds INR 1.0 APTT 26.7 (22.3-36.8) Seconds Sodium 140 (137-145) mmol/L Potassium 3.6 (3.4-5.0) mmol/L Chloride 102 (98-107) mmol/L Carbon Dioxide 24 (22-30) mmol/L Anion Gap 14 H (4-12) mmol/L BUN 10 D (7-17) mg/dL Creatinine 1.06 H (0.7-1.0) mg/dL Estim Creat Clear Calc 56 ml/min Estimated GFR 54 L (59 - ) Glucose 106 (65-110) mg/dL Lactic Acid 1.6 (0.7-2.0) mmol/L Calcium 9.6 (8.4-10.2) mg/dL Magnesium 2.3 (1.6-2.3) mg/dL Total Bilirubin 0.4 (0.2-1.3) mg/dL AST 34 (14-36) U/L ALT 36 H (6-35) U/L Alkaline Phosphatase 114 (38-126) U/L Total Protein 8.2 (6.3-8.2) g/dL Albumin 4.4 (3.5-5.1) g/dL Discharge Plan Discharge Clinical Impression: Acute diarrhea, Acute dehydration Patient Disposition: Home Condition: Stable Instructions: Antibiotic Form, Dehydration (DC), Acute Diarrhea (ED) Additional Instructions: Your laboratory studies are normal without any signs of anemia or blood loss, no infection markers or white count. Normal liver and kidney function at baseline with normal glucose. No signs of any significant concern on your labs are workup today and you responded nicely to hydration. Possible some IBS or viral gastroenteritis as the cause for the diarrhea. No urgent or emergent concerns today. Maintain a bland diet for the next few days to help with the diarrhea and maintain good oral hydration with water or electrolyte replacement solutions. Take any Tylenol or ibuprofen for fevers. Return if you start developing abdominal pain, nauseousness and vomiting, worsening signs of dehydration or any other concerns but otherwise follow-up with your doctor. You do need a GI doctor given your age for an colonoscopy and will provide your referral. Patient Language: Cambodian Prescriptions: New loperamide [Anti-Diarrheal (loperamide)] 2 mg capsule 2 mg PO Q6H PRN (Reason: loose stool) Qty: 14 0RF No Action diclofenac potassium 50 mg tablet 50 mg PO TID PRN (Reason: pain) 10 Days Qty: 30 0RF Follow-up/Referrals: PHYSICIAN,TRAFFIC RATE CLERK [Primary Care Provider] - Jorden Parks MD [Physician] - 1 Week (Chronic iron deficiency, needs colonoscopy outpatient) Time of Disposition: 15:06
== END 2024-10-14 15:30 | disposition home or self-care (01) ==
PROVIDERS: Emergency Provider Student in an Organized Health Care Education/Training Program
DX: R19.7 Diarrhea, unspecified (principal); E86.0 Dehydration
CPT/HCPCS: 36415; 80053; 83605; 83735; 85025; 85610; 85730; 96360; 99283; J7120